=== PATIENT | male | born 1990 | race American Indian/Alaskan Native ===

== ENCOUNTER 2017-08-09 02:20 | Emergency (ER) | payer SELFPAY ==
[2017-08-09] MEDS ORDERED: TYLENOL PO ONE (04:43)
[2017-08-09] MEDS ORDERED: MOTRIN PO ONE (07:35)
[2017-08-09 07:49] LABS: Basophils % (Auto) 0.5 % (0.0-1.8); Eosinophils # (Auto) 0.3 K/mm3 (0.0-0.4); Eosinophils % (Auto) 4.2 % (0.0-4.3); Hematocrit 42.7 % (35.5-45.6); Hemoglobin 14.9 gm/dl (11.8-15.2); Lymphocytes # (Auto) 2.3 K/mm3 (1.2-5.4); Lymphocytes % (Auto) 31.9 % (13.4-35.0); Mean Corpuscular HGB Conc 35 % (32-34); Mean Corpuscular Hemoglobin 31 pg (28-32); Mean Corpuscular Volume 88 fl (84-94); Monocytes # (Auto) 0.7 K/mm3 (0.0-0.8); Monocytes % (Auto) 9.6 % (0.0-7.3); Platelet Count 188 K/mm3 (140-440); Red Blood Count 4.85 M/mm3 (3.65-5.03); Red Cell Distribution Width 13.5 % (13.2-15.2)
[2017-08-09 08:06] LABS: BUN/Creatinine Ratio 10; Blood Urea Nitrogen 5 mg/dL (9-20); Calcium 8.8 mg/dL (8.4-10.2); Hemolysis Index 18
--- NOTE | 2017-08-09 08:23 | XRay Report ---
Right hand 3 views: History: Finger/hand pain. Findings: No articular abnormality. No periosteal reaction or lytic lesion no soft tissue calcification. Impression: Essentially negative right hand.
[2017-08-09] MEDS ORDERED: K-DUR PO ONE (08:51)
--- NOTE | 2017-08-09 09:22 | Emergency Department Report ---
ED ENT HPI - General Chief complaint: Extremity Injury, Upper Stated complaint: RIGHT THUMB PAIN Time Seen by Provider: 08/09/17 07:34 Source: patient Mode of arrival: Ambulatory Limitations: No Limitations - History of Present Illness Initial comments: This is a 26-year-old male nontoxic, well nourished in appearance, no acute signs of distress presents to the ED with c/o of right thumb pain and right lower toothache 3 weeks. Patient denies following up with a dentist. 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 Patient denies any joint swelling or redness. Denies decreased ROM. Patient otherwise denies any head trauma. Patient describes toothache as aching level of 8 out of 10. Patient denies any facial swelling. Patient denies any numbness, tingling, fever, chills, headache, stiff neck, abdominal pain, chest pain, shortness of breath. Patient denies any drug allergies or significant past medical history. Patient states allergies to Bactrim and erythromycin base. Denies any skin past medical history. MD complaint: tooth pain, other (right thumb pain) Location: tooth # 1 - pain here Severity: mild Severity scale (0 -10): 8 Quality: aching Consistency: constant Improves with: none Worsens with: none Associated Symptoms: gum swelling, toothache. denies: fever, cough, pain with swallowing, sore throat, tinnitus, hearing loss, discharge from ear, rhinorrhea - Related Data Previous Rx's Medication Instructions Recorded Last Taken Type Acetaminophen/Codeine [Tylenol 1 tab PO Q6H PRN #12 tab 08/09/17 Unknown Rx /Codeine # 3 tab] Amoxicillin/K Clav Tab [Augmentin 1 tab PO Q12HR #20 tab 08/09/17 Unknown Rx 875 mg] Ibuprofen [Motrin] 600 mg PO Q8H PRN #30 tablet 08/09/17 Unknown Rx Allergies Allergy/AdvReac Type Severity Reaction Status Date / Time erythromycin base Allergy Hives Verified 08/09/17 04:43 sulfamethoxazole Allergy Hives Verified 08/09/17 04:43 [From Bactrim] trimethoprim [From Bactrim] Allergy Hives Verified 08/09/17 04:43 ED Dental HPI - General Chief complaint: Extremity Injury, Upper Stated complaint: RIGHT THUMB PAIN Time Seen by Provider: 08/09/17 07:34 Source: patient Mode of arrival: Ambulatory Limitations: No Limitations - Related Data Previous Rx's Medication Instructions Recorded Last Taken Type Acetaminophen/Codeine [Tylenol 1 tab PO Q6H PRN #12 tab 08/09/17 Unknown Rx /Codeine # 3 tab] Amoxicillin/K Clav Tab [Augmentin 1 tab PO Q12HR #20 tab 08/09/17 Unknown Rx 875 mg] Ibuprofen [Motrin] 600 mg PO Q8H PRN #30 tablet 08/09/17 Unknown Rx Allergies Allergy/AdvReac Type Severity Reaction Status Date / Time erythromycin base Allergy Hives Verified 08/09/17 04:43 sulfamethoxazole Allergy Hives Verified 08/09/17 04:43 [From Bactrim] trimethoprim [From Bactrim] Allergy Hives Verified 08/09/17 04:43 ED Review of Systems ROS: Stated complaint: RIGHT THUMB PAIN Other details as noted in HPI Constitutional: denies: chills, fever Eyes: denies: eye pain, eye discharge, vision change ENT: dental pain. denies: ear pain, throat pain Respiratory: denies: cough, shortness of breath, wheezing Cardiovascular: denies: chest pain, palpitations Endocrine: no symptoms reported Gastrointestinal: denies: abdominal pain, nausea, diarrhea Genitourinary: denies: urgency, dysuria Musculoskeletal: arthralgia. denies: back pain, joint swelling Skin: denies: rash, lesions Neurological: denies: headache, weakness, paresthesias Psychiatric: denies: anxiety, depression Hematological/Lymphatic: denies: easy bleeding, easy bruising ED Past Medical Hx - Past Medical History Previous Medical History?: No - Surgical History Past Surgical History?: Yes Additional Surgical History: R ankle sx ? - Social History Smoking Status: Current Every Day Smoker Substance Use Type: None, Alcohol, Heroin - Medications Home Medications: Home Medications Medication Instructions Recorded Confirmed Last Taken Type Acetaminophen/Codeine [Tylenol 1 tab PO Q6H PRN #12 tab 08/09/17 Unknown Rx /Codeine # 3 tab] Amoxicillin/K Clav Tab [Augmentin 1 tab PO Q12HR #20 tab 08/09/17 Unknown Rx 875 mg] Ibuprofen [Motrin] 600 mg PO Q8H PRN #30 tablet 08/09/17 Unknown Rx ED Physical Exam - General Limitations: No Limitations General appearance: alert, in no apparent distress - Head Head exam: Present: atraumatic, normocephalic - Eye Eye exam: Present: normal appearance Pupils: Present: normal accommodation - ENT ENT exam: Present: mucous membranes moist, TM's normal bilaterally, normal external ear exam - Expanded ENT Exam Expanded Ear exam: Present: normal external inspection Mouth exam: Present: normal external inspection, tongue normal. Absent: drooling, trismus, muffled voice, tongue elevation, laceration Teeth exam: Present: dental tenderness #, gingival enlargement, other (No facial swelling. ) 1 - Dental Tenderness Throat exam: Positive: normal inspection, other (Uvula midline. ). Negative: tonsillar erythema, tonsillomegaly, tonsillar exudate, R peritonsillar mass, L peritonsillar mass - Neck Neck exam: Present: normal inspection, full ROM. Absent: tenderness, meningismus, lymphadenopathy - Respiratory Respiratory exam: Present: normal lung sounds bilaterally. Absent: respiratory distress, wheezes, rales, rhonchi, stridor, chest wall tenderness, accessory muscle use, decreased breath sounds, prolonged expiratory - Cardiovascular Cardiovascular Exam: Present: regular rate, normal rhythm, normal heart sounds. Absent: bradycardia, tachycardia, irregular rhythm, systolic murmur, diastolic murmur, rubs, gallop - GI/Abdominal GI/Abdominal exam: Present: soft, normal bowel sounds - Rectal Rectal exam: Present: deferred - Extremities Exam Extremities exam: Present: normal inspection, full ROM, tenderness, normal capillary refill. Absent: joint swelling - Expanded Upper Extremity Exam Right General: Present: normal inspection Shoulder Exam: Present: normal inspection, full ROM Upper Arm exam: Present: normal inspection, full ROM Elbow exam: Present: normal inspection, full ROM Forearm Wrist exam: Present: normal inspection, full ROM. Absent: tenderness, swelling, abrasion, laceration, ecchymosis, deformity, crepidus, dislocation, erythema, tenderness over anatomical snuff box, pain with axial thumb loading Hand Wrist exam: Present: normal inspection, full ROM, tenderness. Absent: swelling, abrasion, laceration, ecchymosis, deformity, crepidus, dislocation, erythema, amputation, nail avulsion, subungual hematoma Hand L/R Back: 1 - pain Neuro motor exam: Present: wrist extension intact, thumb opposition intact, thumb IP flexion intact, thumb adduction intact, fingers 2-5 abduction intact Neurosensory exam: Present: 2-point discrimination, radial nerve intact, ulnar nerve intact, median nerve intact Vascular: Present: vascular compromise, normal capillary refill, radial pulse, brachial pulse, ulnar pulse - Back Exam Back exam: Present: normal inspection, full ROM - Neurological Exam Neurological exam: Present: alert, oriented X3, normal gait - Psychiatric Psychiatric exam: Present: normal affect, normal mood - Skin Skin exam: Present: warm, dry, intact, normal color. Absent: rash ED Course Vital Signs 08/09/17 08/09/17 08/09/17 04:37 04:55 05:55 Temperature 98.1 F Pulse Rate 64 Respiratory 18 18 16 Rate Blood Pressure 134/91 O2 Sat by Pulse 99 Oximetry 08/09/17 08/09/17 07:59 08:59 Temperature Pulse Rate Respiratory 16 16 Rate Blood Pressure O2 Sat by Pulse Oximetry - Reevaluation(s) Reevaluation #1: 08/09/17 09:22 Patient is speaking in full sentences with no signs of distress noted. ED Medical Decision Making - Lab Data Result diagrams: 08/09/17 07:41 08/09/17 07:38 - Medical Decision Making This is a 26-year-old female that presents with gingivitis, toothache and right finger strain. Patient is stable and was examined by me. X-ray has been obtained and dictated by the radiologist. Patient is notified of the x-ray report with noted by the patient. Patient does have normal gait with no tenderness and no joint swelling. No ecchymosis. no joint redness or swelling. Not warm to touch. No signs of cellulites present. Patient was instructed to RICE therapy. Patient received Motrin for pain. Patient is discharged with Augmentin and Tylenol 3. At time of discharge, the patient does not seem toxic or ill in appearance. No acute signs of distress noted. Patient agrees to discharge treatment plan of care. No further questions noted by the patient. Critical care attestation.: If time is entered above; I have spent that time in minutes in the direct care of this critically ill patient, excluding procedure time. ED Disposition Clinical Impression: Strain of right thumb, Toothache, Gingivitis Disposition: TO HOME OR SELFCARE Is pt being admited?: No Does the pt Need Aspirin: No Condition: Stable Instructions: Gingivitis (ED), Toothache (ED), Amoxicillin/Clavulanate Potassium (By mouth), RICE Therapy (ED), Acetaminophen/Codeine (By mouth), Ibuprofen (By mouth) Additional Instructions: Follow-up with a primary care doctor in 3-5 days or if symptoms worsen and continue return to emergency room as soon as possible. Prescriptions: Acetaminophen/Codeine [Tylenol /Codeine # 3 tab] 1 tab PO Q6H PRN #12 tab PRN Reason: Pain Amoxicillin/K Clav Tab [Augmentin 875 mg] 1 tab PO Q12HR #20 tab Ibuprofen [Motrin] 600 mg PO Q8H PRN #30 tablet PRN Reason: Pain Referrals: PRIMARY CARE, [Primary Care Provider] - 3-5 Days [facility] [Staff Physician] - 3-5 Days [facility] [Outside] - 3-5 Days [facility] [Outside] - 3-5 Days Forms: Work/School Release Form(ED)
[2017-08-09 09:43] VITALS: BP 128/76
== END 2017-08-09 09:43 | disposition home or self-care (01) ==
LOC: ED 02:20
DX: S56.311A Strain of extensor or abductor muscles, fascia and tendons of right thumb at forearm level, initial encounter (principal); K08.89 Other specified disorders of teeth and supporting structures; Z88.1 Allergy status to other antibiotic agents; Z88.2 Allergy status to sulfonamides; F17.200 Nicotine dependence, unspecified, uncomplicated; W22.09XA Striking against other stationary object, initial encounter; Y93.89 Activity, other specified; Y92.89 Other specified places as the place of occurrence of the external cause; Y99.8 Other external cause status
CPT/HCPCS: 36415; 80048; 85025

== ENCOUNTER 2017-08-22 20:39 | Emergency (ER) | payer SELFPAY ==
[2017-08-22 21:16] VITALS: BP 116/77
== END 2017-08-23 03:45 | disposition left against medical advice (07) ==
LOC: ED 20:39
DX: M79.644 Pain in right finger(s) (principal); Z53.21 Procedure and treatment not carried out due to patient leaving prior to being seen by health care provider

== ENCOUNTER 2017-08-23 22:36 | Emergency (ER) | payer SELFPAY ==
[2017-08-23 23:50] VITALS: BP 127/80
--- NOTE | 2017-08-24 01:42 | Emergency Department Report ---
ED ENT HPI - General Chief complaint: Dental/Oral Stated complaint: TOOTH ACHE Time Seen by Provider: 08/24/17 01:37 Source: patient Mode of arrival: Ambulatory Limitations: No Limitations - History of Present Illness Initial comments: 26-year-old male comes in for right toothache 2 days. Patient port the pain is 10 out of 10 and just took 800 mg of ibuprofen 30 minutes prior to arrival. Patient was recently seen here on 08/09/2017 and was prescribed Augmentin ibuprofen and Tylenol for thumb pain. Patient reports he does not have a dentist. MD complaint: tooth pain -: days(s) (2) Location: tooth # (29) Severity: severe Severity scale (0 -10): 10 Quality: stabbing, aching Consistency: constant Improves with: none Worsens with: none - Related Data Previous Rx's Medication Instructions Recorded Last Taken Type Acetaminophen/Codeine [Tylenol 1 tab PO Q6H PRN #12 tab 08/09/17 Unknown Rx /Codeine # 3 tab] Amoxicillin/K Clav Tab [Augmentin 1 tab PO Q12HR #20 tab 08/09/17 Unknown Rx 875 mg] Ibuprofen [Motrin 600 MG tab] 600 mg PO Q8H PRN #30 tablet 08/24/17 Unknown Rx Penicillin Vk [Veetids TAB] 250 mg PO QID #40 tablet 08/24/17 Unknown Rx traMADol [Ultram 50 MG tab] 50 mg PO Q6HR PRN #20 tablet 08/24/17 Unknown Rx Allergies Allergy/AdvReac Type Severity Reaction Status Date / Time erythromycin base Allergy Hives Verified 08/09/17 04:43 sulfamethoxazole Allergy Hives Verified 08/09/17 04:43 [From Bactrim] trimethoprim [From Bactrim] Allergy Hives Verified 08/09/17 04:43 ED Dental HPI - General Chief complaint: Dental/Oral Stated complaint: TOOTH ACHE Time Seen by Provider: 08/24/17 01:37 Source: patient Mode of arrival: Ambulatory Limitations: No Limitations - Related Data Previous Rx's Medication Instructions Recorded Last Taken Type Acetaminophen/Codeine [Tylenol 1 tab PO Q6H PRN #12 tab 08/09/17 Unknown Rx /Codeine # 3 tab] Amoxicillin/K Clav Tab [Augmentin 1 tab PO Q12HR #20 tab 08/09/17 Unknown Rx 875 mg] Ibuprofen [Motrin 600 MG tab] 600 mg PO Q8H PRN #30 tablet 08/24/17 Unknown Rx Penicillin Vk [Veetids TAB] 250 mg PO QID #40 tablet 08/24/17 Unknown Rx traMADol [Ultram 50 MG tab] 50 mg PO Q6HR PRN #20 tablet 08/24/17 Unknown Rx Allergies Allergy/AdvReac Type Severity Reaction Status Date / Time erythromycin base Allergy Hives Verified 08/09/17 04:43 sulfamethoxazole Allergy Hives Verified 08/09/17 04:43 [From Bactrim] trimethoprim [From Bactrim] Allergy Hives Verified 08/09/17 04:43 ED Review of Systems ROS: Stated complaint: TOOTH ACHE Other details as noted in HPI Constitutional: denies: chills, fever ENT: dental pain ED Past Medical Hx - Past Medical History Previous Medical History?: No - Surgical History Past Surgical History?: Yes Additional Surgical History: R ankle sx ? - Social History Smoking Status: Current Every Day Smoker Substance Use Type: Marijuana - Medications Home Medications: Home Medications Medication Instructions Recorded Confirmed Last Taken Type Acetaminophen/Codeine [Tylenol 1 tab PO Q6H PRN #12 tab 08/09/17 Unknown Rx /Codeine # 3 tab] Amoxicillin/K Clav Tab [Augmentin 1 tab PO Q12HR #20 tab 08/09/17 Unknown Rx 875 mg] Ibuprofen [Motrin 600 MG tab] 600 mg PO Q8H PRN #30 tablet 08/24/17 Unknown Rx Penicillin Vk [Veetids TAB] 250 mg PO QID #40 tablet 08/24/17 Unknown Rx traMADol [Ultram 50 MG tab] 50 mg PO Q6HR PRN #20 tablet 08/24/17 Unknown Rx ED Physical Exam - General Limitations: No Limitations General appearance: alert, in no apparent distress - Head Head exam: Present: atraumatic, normocephalic - Eye Eye exam: Present: normal appearance - Expanded ENT Exam Expanded Teeth exam: Present: dental caries, dental tenderness # (29), gingival enlargement, other (multiple caries and missing teeth ) Throat exam: Positive: normal inspection. Negative: tonsillomegaly - Neck Neck exam: Present: normal inspection - Respiratory Respiratory exam: Present: normal lung sounds bilaterally. Absent: respiratory distress - Cardiovascular Cardiovascular Exam: Present: regular rate, normal rhythm. Absent: systolic murmur, diastolic murmur, rubs, gallop ED Course Vital Signs 08/23/17 23:36 Temperature 98.4 F Pulse Rate 102 H Respiratory 12 Rate Blood Pressure 127/80 O2 Sat by Pulse 98 Oximetry ED Medical Decision Making - Medical Decision Making Patient has been evaluated by this provider fast track. I discussed the patient since he's been on Augmentin I will place him on clindamycin continue with ibuprofen and will give a prescription for tramadol and referral to dentist. Critical care attestation.: If time is entered above; I have spent that time in minutes in the direct care of this critically ill patient, excluding procedure time. ED Disposition Clinical Impression: Dental abscess Disposition: - TO HOME OR SELFCARE Is pt being admited?: No Does the pt Need Aspirin: No Condition: Stable Instructions: Dental Abscess (ED) Additional Instructions: Please complete antibiotics as prescribed. Pain medication as needed and follow -up with a dentist for treatment and management. Prescriptions: Ibuprofen [Motrin 600 MG tab] 600 mg PO Q8H PRN #30 tablet PRN Reason: Pain Penicillin Vk [Veetids TAB] 250 mg PO QID #40 tablet traMADol [Ultram 50 MG tab] 50 mg PO Q6HR PRN #20 tablet PRN Reason: Pain Referrals: PRIMARY CARE, [Primary Care Provider] - 3-5 Days [facility] [Outside] - 3-5 Days [facility] [Outside] - 3-5 Days [facility] [Provider Group] - 3-5 Days Forms: Work/School Release Form(ED)
[2017-08-24] MEDS ORDERED: NORCO 7.5/325 PO ONE (01:44)
== END 2017-08-24 02:00 | disposition home or self-care (01) ==
LOC: ED 22:36
DX: K04.7 Periapical abscess without sinus (principal); F17.200 Nicotine dependence, unspecified, uncomplicated; F12.90 Cannabis use, unspecified, uncomplicated; Z88.1 Allergy status to other antibiotic agents; Z88.2 Allergy status to sulfonamides
CPT/HCPCS: 99282

== ENCOUNTER 2017-09-02 01:49 | Emergency (ER) | payer SELFPAY ==
[2017-09-02 01:57] VITALS: BP 107/73
[2017-09-02] MEDS ORDERED: NORCO 5/325 ONE (01:59)
[2017-09-02] MEDS ORDERED: MOTRIN ONE (01:59)
[2017-09-02] MEDS ORDERED: MOTRIN PO ONE (02:10)
[2017-09-02] MEDS ORDERED: NORCO 5/325 PO ONE (02:10)
--- NOTE | 2017-09-02 03:14 | XRay Report ---
FINAL REPORT EXAM: XR ANKLE 2V LT HISTORY: swollen LLE TECHNIQUE: AP and lateral views of the left ankle were submitted. FINDINGS: There is diffuse soft tissue swelling overlying the anterolateral aspect of the ankle. The ankle mortise appears intact. There is no evidence of acute fracture. IMPRESSION: Prominent soft tissue swelling along the anterolateral aspect of the ankle. No fracture or dislocation identified.
--- NOTE | 2017-09-02 03:41 | Emergency Department Report ---
- General Chief complaint: Skin/Abscess/Foreign Body Stated complaint: KNOT ON LEG Time Seen by Provider: 09/02/17 02:39 Source: patient Mode of arrival: Ambulatory Limitations: No Limitations - History of Present Illness Initial comments: 26-year-old male past medical history former IV drug user presents with complaint of 2-3 days of abscess developing his left lower extremity. Visible walnut-sized abscess at distal anterior yip region. Patient states it is painful to palpation. Denies fevers chills nausea vomiting. Patient ambulatory without assistance. Denies any current IV drug use. States he is concerned he may have been bitten by an insect. 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 MD complaint: abscess/boil Onset/Timin -: days(s) Location: LLE Severity: moderate Severity scale (0 -10): 6 Quality: aching Consistency: constant Improves with: none Worsens with: palpation Context: none Associated symptoms: denies other symptoms Treatments Prior to Arrival: none - Related Data Previous Rx's Medication Instructions Recorded Last Taken Type Acetaminophen/Codeine [Tylenol 1 tab PO Q6H PRN #12 tab 08/09/17 Unknown Rx /Codeine # 3 tab] Amoxicillin/K Clav Tab [Augmentin 1 tab PO Q12HR #20 tab 08/09/17 Unknown Rx 875 mg] Ibuprofen [Motrin 600 MG tab] 600 mg PO Q8H PRN #30 tablet 08/24/17 Unknown Rx Penicillin Vk [Veetids TAB] 250 mg PO QID #40 tablet 08/24/17 Unknown Rx traMADol [Ultram 50 MG tab] 50 mg PO Q6HR PRN #20 tablet 08/24/17 Unknown Rx Clindamycin [Clindamycin CAP] 300 mg PO Q6H #28 capsule 09/02/17 Unknown Rx Ibuprofen [Motrin] 800 mg PO Q8HR PRN #20 tablet 09/02/17 Unknown Rx Allergies Allergy/AdvReac Type Severity Reaction Status Date / Time erythromycin base Allergy Hives Verified 08/09/17 04:43 sulfamethoxazole Allergy Hives Verified 08/09/17 04:43 [From Bactrim] trimethoprim [From Bactrim] Allergy Hives Verified 08/09/17 04:43 Abscess Boil HPI - HPI Chief Complaint: Skin/Abscess/Foreign Body Stated Complaint: KNOT ON LEG Time Seen by Provider: 09/02/17 02:39 Home Medications: Previous Rx's Medication Instructions Recorded Last Taken Type Acetaminophen/Codeine [Tylenol 1 tab PO Q6H PRN #12 tab 08/09/17 Unknown Rx /Codeine # 3 tab] Amoxicillin/K Clav Tab [Augmentin 1 tab PO Q12HR #20 tab 08/09/17 Unknown Rx 875 mg] Ibuprofen [Motrin 600 MG tab] 600 mg PO Q8H PRN #30 tablet 08/24/17 Unknown Rx Penicillin Vk [Veetids TAB] 250 mg PO QID #40 tablet 08/24/17 Unknown Rx traMADol [Ultram 50 MG tab] 50 mg PO Q6HR PRN #20 tablet 08/24/17 Unknown Rx Clindamycin [Clindamycin CAP] 300 mg PO Q6H #28 capsule 09/02/17 Unknown Rx Ibuprofen [Motrin] 800 mg PO Q8HR PRN #20 tablet 09/02/17 Unknown Rx Allergies/Adverse Reactions: Allergies Allergy/AdvReac Type Severity Reaction Status Date / Time erythromycin base Allergy Hives Verified 08/09/17 04:43 sulfamethoxazole Allergy Hives Verified 08/09/17 04:43 [From Bactrim] trimethoprim [From Bactrim] Allergy Hives Verified 08/09/17 04:43 ED Review of Systems ROS: Stated complaint: KNOT ON LEG Other details as noted in HPI Constitutional: denies: chills, fever Eyes: denies: eye pain, eye discharge, vision change ENT: denies: ear pain, throat pain Respiratory: denies: cough, shortness of breath, wheezing Cardiovascular: denies: chest pain, palpitations Endocrine: no symptoms reported Gastrointestinal: denies: abdominal pain, nausea, diarrhea Genitourinary: denies: urgency, dysuria Musculoskeletal: denies: back pain, joint swelling, arthralgia Skin: as per HPI. denies: rash, lesions Neurological: denies: headache, weakness, paresthesias Psychiatric: denies: anxiety, depression Hematological/Lymphatic: denies: easy bleeding, easy bruising ED Past Medical Hx - Past Medical History Previous Medical History?: Yes Additional medical history: gall bladder - Surgical History Past Surgical History?: Yes Additional Surgical History: R ankle sx ? - Social History Smoking Status: Current Every Day Smoker Substance Use Type: Marijuana, Methamphetamines - Medications Home Medications: Home Medications Medication Instructions Recorded Confirmed Last Taken Type Acetaminophen/Codeine [Tylenol 1 tab PO Q6H PRN #12 tab 08/09/17 Unknown Rx /Codeine # 3 tab] Amoxicillin/K Clav Tab [Augmentin 1 tab PO Q12HR #20 tab 08/09/17 Unknown Rx 875 mg] Ibuprofen [Motrin 600 MG tab] 600 mg PO Q8H PRN #30 tablet 08/24/17 Unknown Rx Penicillin Vk [Veetids TAB] 250 mg PO QID #40 tablet 08/24/17 Unknown Rx traMADol [Ultram 50 MG tab] 50 mg PO Q6HR PRN #20 tablet 08/24/17 Unknown Rx Clindamycin [Clindamycin CAP] 300 mg PO Q6H #28 capsule 09/02/17 Unknown Rx Ibuprofen [Motrin] 800 mg PO Q8HR PRN #20 tablet 09/02/17 Unknown Rx ED Physical Exam - General Limitations: No Limitations General appearance: alert, in no apparent distress - Head Head exam: Present: atraumatic, normocephalic - Eye Eye exam: Present: normal appearance - ENT ENT exam: Present: mucous membranes moist - Neck Neck exam: Present: normal inspection - Respiratory Respiratory exam: Present: normal lung sounds bilaterally. Absent: respiratory distress - Cardiovascular Cardiovascular Exam: Present: regular rate, normal rhythm. Absent: systolic murmur, diastolic murmur, rubs, gallop - GI/Abdominal GI/Abdominal exam: Present: soft, normal bowel sounds - Rectal Rectal exam: Present: deferred - Extremities Exam Extremities exam: Present: normal inspection - Expanded Lower Extremity Exam Left Lower Leg exam: Present: normal inspection, tenderness, swelling Ankle exam: Present: normal inspection, full ROM 1 - Abscess here - Back Exam Back exam: Present: normal inspection - Neurological Exam Neurological exam: Present: alert, oriented X3, CN II-XII intact, normal gait - Psychiatric Psychiatric exam: Present: normal affect, normal mood - Skin Skin exam: Present: warm, dry, intact, normal color. Absent: rash ED Course Vital Signs 09/02/17 09/02/17 01:51 02:11 Temperature 98.8 F Pulse Rate 94 H Respiratory 18 18 Rate Blood Pressure 107/73 O2 Sat by Pulse 100 Oximetry - I & D Left Distal Leg Type of Procedure: Simple Site: left distal anterior lower tibial region Blade Size: 11 I & D Procedure: betadine prep, gauze wick placed Progress: Area infiltrated with lidocaine. Good local anesthesia achieved. Approximately 4-5 mL of purulent material incised out of the wound after single stab incision. Covered with gauze afterward. ED Medical Decision Making - Medical Decision Making A/P: Abscess, abscess incision and drainage 1-clindamycin 4 times a day 7 days 2-Motrin 800 when necessary 3-follow-up with primary care 4- advised patient to return to the ED if he experiences any worsening of the erythema or expansion of abscess despite drainage. Patient stated he understood my instructions Critical care attestation.: If time is entered above; I have spent that time in minutes in the direct care of this critically ill patient, excluding procedure time. ED Disposition Clinical Impression: Abscess Disposition: DC-01 TO HOME OR SELFCARE Is pt being admited?: No Does the pt Need Aspirin: No Condition: Stable Instructions: Abscess (ED), Abscess Incision and Drainage (ED) Prescriptions: Clindamycin [Clindamycin CAP] 300 mg PO Q6H #28 capsule Ibuprofen [Motrin] 800 mg PO Q8HR PRN #20 tablet PRN Reason: Pain Referrals: [facility] [Provider Group] - 3-5 Days [facility] [Outside] - 3-5 Days Forms: Work/School Release Form(ED), Accompanied Note Time of Disposition: 04:19
[2017-09-02] MEDS ORDERED: CLEOCIN PO ONE (04:20)
== END 2017-09-02 04:31 | disposition home or self-care (01) ==
LOC: ED 01:49
DX: L02.416 Cutaneous abscess of left lower limb (principal); F17.200 Nicotine dependence, unspecified, uncomplicated; F12.10 Cannabis abuse, uncomplicated; F15.10 Other stimulant abuse, uncomplicated; Z88.1 Allergy status to other antibiotic agents; Z88.2 Allergy status to sulfonamides
CPT/HCPCS: 99283

== ENCOUNTER 2017-09-03 11:56 | Inpatient (IN) | payer SELFPAY ==
[2017-09-03] MEDS ORDERED: VANCOMYCIN IV ONE (12:07)
[2017-09-03] MEDS ORDERED: NACL 0.9% 1000 ML IV ONE (12:07)
[2017-09-03] MEDS ORDERED: NACL 0.9% IV ONE (12:07)
[2017-09-03] MEDS ORDERED: TYLENOL PO PRN ×2 (12:07→21:33)
[2017-09-03] MEDS ORDERED: XYLOCAINE CARDIAC IV ONE (12:23)
[2017-09-03] MEDS ORDERED: NACL 0.9% 100 ML ONE (12:41)
--- NOTE | 2017-09-03 12:47 | Emergency Department Report ---
ED Lower Extremity HPI - General Chief Complaint: Pain General Stated Complaint: SWELLING LEFT FOOT/INFECTION Time Seen by Provider: 09/03/17 11:57 Source: patient, EMS (verbal report received from EMS.ems notes not available at time of chart dictation), RN notes reviewed, old records reviewed Mode of arrival: Stretcher Limitations: Physical Limitation - History of Present Illness Initial Comments: This is a 26-year-old male who is previously unknown to this provider. He presents to the ER with a complaint of worsening left lower extremity redness, pain, swelling. Seen in this department a few days ago, had an incision and drainage performed, was prescribed clindamycin, reports not taking it. Denies headache, neck pain, chest pain, abdominal pain, shortness of breath. His pain is sharp, increases with palpation, decreases with rest, and is radiating up the distal left calf. EMS reports hypotension in the field. MD Complaint: leg injury, ankle injury, foot injury, other -: Gradual, days(s) Injury: Leg: Left, Ankle: Left, Foot: Left Type of Injury: unknown Severity: moderate Improves With: rest Worsens With: movement, palpation Associated Symptoms: swelling, unable to bear weight - Related Data Previous Rx's Medication Instructions Recorded Last Taken Type Acetaminophen/Codeine [Tylenol 1 tab PO Q6H PRN #12 tab 08/09/17 Unknown Rx /Codeine # 3 tab] Amoxicillin/K Clav Tab [Augmentin 1 tab PO Q12HR #20 tab 08/09/17 Unknown Rx 875 mg] Ibuprofen [Motrin 600 MG tab] 600 mg PO Q8H PRN #30 tablet 08/24/17 Unknown Rx Penicillin Vk [Veetids TAB] 250 mg PO QID #40 tablet 08/24/17 Unknown Rx traMADol [Ultram 50 MG tab] 50 mg PO Q6HR PRN #20 tablet 08/24/17 Unknown Rx Clindamycin [Clindamycin CAP] 300 mg PO Q6H #28 capsule 09/02/17 Unknown Rx Ibuprofen [Motrin] 800 mg PO Q8HR PRN #20 tablet 09/02/17 Unknown Rx Allergies Allergy/AdvReac Type Severity Reaction Status Date / Time erythromycin base Allergy Hives Verified 08/09/17 04:43 sulfamethoxazole Allergy Hives Verified 08/09/17 04:43 [From Bactrim] trimethoprim [From Bactrim] Allergy Hives Verified 08/09/17 04:43 ED Review of Systems ROS: Stated complaint: SWELLING LEFT FOOT/INFECTION Other details as noted in HPI Constitutional: weakness Eyes: denies: eye discharge ENT: denies: epistaxis Respiratory: denies: cough Cardiovascular: denies: chest pain Gastrointestinal: denies: abdominal pain Musculoskeletal: joint swelling, arthralgia, myalgia Skin: rash, lesions Neurological: weakness Psychiatric: anxiety ED Past Medical Hx - Past Medical History Previous Medical History?: Yes Additional medical history: gall bladder - Surgical History Past Surgical History?: Yes Additional Surgical History: R ankle sx ? - Social History Smoking Status: Current Every Day Smoker Substance Use Type: Alcohol, Marijuana - Medications Home Medications: Home Medications Medication Instructions Recorded Confirmed Last Taken Type Acetaminophen/Codeine [Tylenol 1 tab PO Q6H PRN #12 tab 08/09/17 Unknown Rx /Codeine # 3 tab] Amoxicillin/K Clav Tab [Augmentin 1 tab PO Q12HR #20 tab 08/09/17 Unknown Rx 875 mg] Ibuprofen [Motrin 600 MG tab] 600 mg PO Q8H PRN #30 tablet 08/24/17 Unknown Rx Penicillin Vk [Veetids TAB] 250 mg PO QID #40 tablet 08/24/17 Unknown Rx traMADol [Ultram 50 MG tab] 50 mg PO Q6HR PRN #20 tablet 08/24/17 Unknown Rx Clindamycin [Clindamycin CAP] 300 mg PO Q6H #28 capsule 09/02/17 Unknown Rx Ibuprofen [Motrin] 800 mg PO Q8HR PRN #20 tablet 09/02/17 Unknown Rx ED Physical Exam - General Limitations: Physical Limitation General appearance: alert, in distress - Head Head exam: Present: atraumatic, normocephalic - Eye Eye exam: Present: normal appearance, EOMI. Absent: nystagmus - ENT ENT exam: Present: normal exam, normal orophraynx, mucous membranes moist, normal external ear exam - Neck Neck exam: Present: normal inspection, full ROM - Respiratory Respiratory exam: Present: normal lung sounds bilaterally. Absent: respiratory distress - Cardiovascular Cardiovascular Exam: Present: regular rate, normal rhythm, normal heart sounds. Absent: systolic murmur, diastolic murmur, rubs, gallop - GI/Abdominal GI/Abdominal exam: Present: soft, normal bowel sounds. Absent: distended, tenderness, guarding, rebound, rigid, pulsatile mass - Rectal Rectal exam: Present: deferred - Extremities Exam Extremities exam: Present: tenderness, pedal edema, joint swelling, calf tenderness, other (2+ pulses noted in the bilateral upper extremities. 2+ pulses noted in the right lower extremity. Left lower extremity is erythematous from the dorsal/lateral aspect of the left foot, and there is also erythema extending to the proximal left calf. There is ulcerated lesion noted on the left lateral leg consistent with recent incision and drainage. There is no pain with passive range of motion of the toes. The compartments are tender. There is pain with passive range of motion of the ankle.) - Back Exam Back exam: Present: normal inspection, full ROM. Absent: paraspinal tenderness , vertebral tenderness - Neurological Exam Neurological exam: Present: alert, oriented X3, CN II-XII intact, other ( Extraocular movements intact. Tongue midline. No facial droop. Facial sensation intact to light touch in the V1, V2, V3 distribution bilaterally. 5 and 5 strength in 4 extremities.. Sensation is intact to light touch in 4 extremities.). Absent: motor sensory deficit - Psychiatric Psychiatric exam: Present: anxious - Skin Skin exam: Present: warm, rash, erythema ED Course Vital Signs 09/03/17 09/03/17 09/03/17 11:57 12:00 12:15 Temperature 97.9 F Pulse Rate 94 H Respiratory 16 Rate Blood Pressure 95/59 94/57 O2 Sat by Pulse 99 97 Oximetry 09/03/17 09/03/17 09/03/17 12:30 12:45 13:00 Temperature Pulse Rate 79 Respiratory 17 Rate Blood Pressure 77/43 81/48 83/47 O2 Sat by Pulse 98 97 98 Oximetry 09/03/17 09/03/17 09/03/17 13:15 13:30 13:54 Temperature Pulse Rate 77 62 78 Respiratory 13 14 Rate Blood Pressure 95/61 100/64 100/64 O2 Sat by Pulse 97 100 Oximetry 09/03/17 09/03/17 14:00 14:15 Temperature Pulse Rate 79 59 L Respiratory 17 15 Rate Blood Pressure 110/73 103/61 O2 Sat by Pulse 100 98 Oximetry - Reevaluation(s) Reevaluation #1: 09/03/17 12:48 Differential diagnosis, including but not limited to: Cellulitis, myositis, septic joint, necrotizing infection Assessment and plan: 26-year-old male with left lower extremity redness, swelling, tenderness, very concerning for worsening infection. He will be treated empirically according to the sepsis pathway. A CT scan of lower extremities pending. Orthopedic coverage resumes tomorrow at 7:00 in the morning. Reevaluation #2: 09/03/17 15:10 CT scan of the left lower extremity shows cellulitis without abscess. There is no radiographic evidence of osteomyelitis. The patient feels improved. The Hospital physician, Dr. Martinez accepted the patient to his service. Given that patient has a significant worsening of his condition after appropriate incision and drainage within the past 72 hours, and given that he cannot bear weight, and given that his physical exam shows significant redness, tenderness, it is my opinion the patient will benefit from hospitalization for IV antibiotics, early mobilization, and possible additional debridement, inpatient team will consult orthopedics or general surgery if they feel like it is necessary. ED Lower Extremity MDM - Lab Data Result diagrams: 09/03/17 12:13 09/03/17 12:13 Critical care attestation.: If time is entered above; I have spent that time in minutes in the direct care of this critically ill patient, excluding procedure time. ED Disposition Clinical Impression: Left leg cellulitis Disposition: OP ADMIT IP TO THIS HOSP Is pt being admited?: Yes Condition: Good
[2017-09-03 12:50] LABS: Basophils # (Auto) 0.1 K/mm3 (0.0-0.1); Basophils % (Auto) 0.8 % (0.0-1.8); Eosinophils # (Auto) 0.2 K/mm3 (0.0-0.4); Hematocrit 38.8 % (35.5-45.6); Hemoglobin 13.1 gm/dl (11.8-15.2); Lymphocytes # (Auto) 1.4 K/mm3 (1.2-5.4); Lymphocytes % (Auto) 12.5 % (13.4-35.0); Mean Corpuscular HGB Conc 34 % (32-34); Mean Corpuscular Hemoglobin 30 pg (28-32); Mean Corpuscular Volume 89 fl (84-94); Monocytes # (Auto) 0.5 K/mm3 (0.0-0.8); Monocytes % (Auto) 4.8 % (0.0-7.3); Platelet Count 184 K/mm3 (140-440); Red Blood Count 4.38 M/mm3 (3.65-5.03); Red Cell Distribution Width 13.2 % (13.2-15.2)
[2017-09-03] MEDS ORDERED: ZOSYN/NS 4.5GM/100ML 4.5 GM/100 ML VIAL IV SCH (13:00)
[2017-09-03 13:10] LABS: Erythrocyte Sedimentation Rate 35 mm/Hr (0-20)
[2017-09-03 13:24] LABS: Albumin 4.1 g/dL (3.9-5); BUN/Creatinine Ratio 15; Blood Urea Nitrogen 15 mg/dL (9-20); Calcium 8.9 mg/dL (8.4-10.2); Hemolysis Index 105
[2017-09-03 13:33] LABS: Alanine Aminotransferase 15 units/L (7-56)
--- NOTE | 2017-09-03 14:58 | Cat Scan Report ---
FINAL REPORT EXAM: CT LOWER EXTREMITY LT W CON HISTORY: septic leg TECHNIQUE: Spiral CT scanning of the left lower extremity from knee to forefoot after the uneventful administration of IV contrast. Multiplanar reformations. 100 mL Omnipaque IV. PRIORS: Left ankle radiographs, 01 September 2017. FINDINGS: Diffuse subcutaneous edema noted primarily along the anterolateral aspect of distal tibial diaphysis through forefoot without obvious perifascial or intramuscular extension. No discrete, ring-enhancing or loculated fluid collection. Trifurcation arteries patent and normally enhancing with 3-vessel runoff to the ankle. No acute fracture, dislocation or obvious osseous destruction. IMPRESSION: 1. Findings which may represent nonspecific postinflammatory change or cellulitis in the anterolateral aspect of left ankle and foot. No discrete abscess. Clinical correlation and followup to resolution advised. 2. No acute osseous abnormality.
[2017-09-03] MEDS ORDERED: NACL 0.9% 1000 ML 2,000 ML ONE (15:16)
[2017-09-03] MEDS ORDERED: ZOFRAN IV PRN (21:33)
[2017-09-03] MEDS ORDERED: SODIUM CHLORIDE FLUSH SYRINGE 10 ML IV PRN (21:33)
--- NOTE | 2017-09-03 21:33 | History and Physical Report ---
History of Present Illness Date of examination: 09/03/17 Date of admission: 09/03/17 15:12 Chief complaint: Chief complaint: Left foot ulcer and swelling and redness one week History of present illness: History of Present Illness 26-year-old male with no significant past medical history comes in for left lower extremity redness and swelling around the ankle. We'll going on for 1 week. Patient had an incision and drainage performed and was prescribed clindamycin in this emergency room. Patient did not take the clindamycin. Now the symptoms are worsening at the increase in redness of the left ankle extending up to the midcalf and also swelling. No fever no chills. Pain is about 6 on a scale of 1-10. Walking is an exacerbating factor. The liver bed rest Past Medical History Previous Medical History?: Yes Additional medical history: gall bladder Surgical History Past Surgical History?: Yes Additional Surgical History: R ankle sx ? Social History Smoking Status: Current Every Day Smoker Substance Use Type: Alcohol, Marijuana Family history unknown Medications Home Medications: Home Medications Medication Instructions Recorded Confirmed Last Taken Type Acetaminophen/Codeine [Tylenol 1 tab PO Q6H PRN #12 tab 08/09/17 Unknown Rx /Codeine # 3 tab] Amoxicillin/K Clav Tab [Augmentin 1 tab PO Q12HR #20 tab 08/09/17 Unknown Rx 875 mg] Ibuprofen [Motrin 600 MG tab] 600 mg PO Q8H PRN #30 tablet 08/24/17 Unknown Rx Penicillin Vk [Veetids TAB] 250 mg PO QID #40 tablet 08/24/17 Unknown Rx traMADol [Ultram 50 MG tab] 50 mg PO Q6HR PRN #20 tablet 08/24/17 Unknown Rx Clindamycin [Clindamycin CAP] 300 mg PO Q6H #28 capsule 09/02/17 Unknown Rx Ibuprofen [Motrin] 800 mg PO Q8HR PRN #20 tablet 09/02/17 Unknown Rx Review of Systems ROS: Stated complaint: SWELLING LEFT FOOT/INFECTION Other details as noted in HPI Constitutional: weakness Eyes: denies: eye discharge ENT: denies: epistaxis Respiratory: denies: cough Cardiovascular: denies: chest pain Gastrointestinal: denies: abdominal pain Musculoskeletal: joint swelling, arthralgia, myalgia Skin: rash, lesions Neurological: weakness Psychiatric: anxiety Medications and Allergies Allergies Allergy/AdvReac Type Severity Reaction Status Date / Time erythromycin base Allergy Hives Verified 08/09/17 04:43 sulfamethoxazole Allergy Hives Verified 08/09/17 04:43 [From Bactrim] trimethoprim [From Bactrim] Allergy Hives Verified 08/09/17 04:43 Home Medications Medication Instructions Recorded Confirmed Last Taken Type Acetaminophen/Codeine [Tylenol 1 tab PO Q6H PRN #12 tab 08/09/17 Unknown Rx /Codeine # 3 tab] Amoxicillin/K Clav Tab [Augmentin 1 tab PO Q12HR #20 tab 08/09/17 Unknown Rx 875 mg] Ibuprofen [Motrin 600 MG tab] 600 mg PO Q8H PRN #30 tablet 08/24/17 Unknown Rx Penicillin Vk [Veetids TAB] 250 mg PO QID #40 tablet 08/24/17 Unknown Rx traMADol [Ultram 50 MG tab] 50 mg PO Q6HR PRN #20 tablet 08/24/17 Unknown Rx Clindamycin [Clindamycin CAP] 300 mg PO Q6H #28 capsule 09/02/17 Unknown Rx Ibuprofen [Motrin] 800 mg PO Q8HR PRN #20 tablet 09/02/17 Unknown Rx Active Meds: Active Medications Acetaminophen (Tylenol) 650 mg PO Q6H PRN PRN Reason: Pain, Mild (1-3) Last Admin: 09/03/17 12:30 Dose: 650 mg Piperacillin Sod/Tazobactam Sod (Zosyn/Ns 4.5gm/100ml) 4.5 gm in 100 mls @ 200 mls/hr IV Q8H ARMAND; Protocol Last Admin: 09/03/17 12:50 Dose: 200 mls/hr Influenza Virus Vaccine Quadrival (Fluarix Quad [id number](36 Mos+) 0.5 ml IM .ONCE ONE Stop: 09/04/17 12:01 Nicotine (Habitrol) 21 mg TD QDAY ARMAND Exam - Physical Exam Narrative exam: Lying in bed comfortably - Constitutional Vitals: Temp Pulse Resp BP Pulse Ox 97.9 F 73 20 93/53 94 09/03/17 16:46 09/03/17 16:46 09/03/17 16:46 09/03/17 16:46 09/03/17 16:46 General appearance: Present: no acute distress, well-nourished - EENT Eyes: Present: PERRL ENT: hearing intact, clear oral mucosa - Neck Neck: Present: supple, normal ROM - Respiratory Respiratory effort: normal Respiratory: bilateral: CTA - Cardiovascular Heart rate: 76 Rhythm: regular Heart Sounds: Present: S1 & S2. Absent: rub, click - Extremities Extremities: no ischemia, pulses symmetrical, No edema, abnormal (left ankle ulcer with redness surrounding the ankle up to the midcalf associated swelling) Peripheral Pulses: within normal limits - Abdominal General gastrointestinal: Present: soft, non-tender, non-distended, normal bowel sounds Male genitourinary: Present: normal - Integumentary Integumentary: Present: clear, warm, dry - Musculoskeletal Musculoskeletal: gait normal, strength equal bilaterally - Psychiatric Psychiatric: appropriate mood/affect, intact judgment & insight - Neurologic Neurologic: CNII-XII intact, moves all extremities Results - Labs CBC & Chem 7: 09/03/17 12:13 09/03/17 12:13 Labs: Laboratory Last Values WBC 11.4 K/mm3 (4.5-11.0) H 09/03/17 12:13 RBC 4.38 M/mm3 (3.65-5.03) 09/03/17 12:13 Hgb 13.1 gm/dl (11.8-15.2) 09/03/17 12:13 Hct 38.8 % (35.5-45.6) 09/03/17 12:13 MCV 89 fl (84-94) 09/03/17 12:13 MCH 30 pg (28-32) 09/03/17 12:13 MCHC 34 % (32-34) 09/03/17 12:13 RDW 13.2 % (13.2-15.2) 09/03/17 12:13 Plt Count 184 K/mm3 (140-440) 09/03/17 12:13 Lymph % (Auto) 12.5 % (13.4-35.0) L 09/03/17 12:13 [place] % (Auto) 4.8 % (0.0-7.3) 09/03/17 12:13 Eos % (Auto) 2.0 % (0.0-4.3) 09/03/17 12:13 Baso % (Auto) 0.8 % (0.0-1.8) 09/03/17 12:13 Lymph # 1.4 K/mm3 (1.2-5.4) 09/03/17 12:13 [place] # 0.5 K/mm3 (0.0-0.8) 09/03/17 12:13 Eos # 0.2 K/mm3 (0.0-0.4) 09/03/17 12:13 Baso # 0.1 K/mm3 (0.0-0.1) 09/03/17 12:13 Seg Neutrophils % 79.9 % (40.0-70.0) H 09/03/17 12:13 Seg Neutrophils # 9.1 K/mm3 (1.8-7.7) H 09/03/17 12:13 ESR 35 mm/Hr (0-20) 09/03/17 12:13 APTT 30.7 Sec. (24.2-36.6) 09/03/17 12:13 Sodium 134 mmol/L (137-145) L 09/03/17 12:13 Potassium 3.8 mmol/L (3.6-5.0) 09/03/17 12:13 Chloride 94.5 mmol/L (98-107) L 09/03/17 12:13 Carbon Dioxide 22 mmol/L (22-30) 09/03/17 12:13 Anion Gap 21 mmol/L 09/03/17 12:13 BUN 15 mg/dL (9-20) 09/03/17 12:13 Creatinine 1.0 mg/dL (0.8-1.5) 09/03/17 12:13 Estimated GFR > 60 ml/min 09/03/17 12:13 BUN/Creatinine Ratio 15 % 09/03/17 12:13 Glucose 86 mg/dL (75-100) 09/03/17 12:13 Lactic Acid 1.30 mmol/L (0.7-2.0) 09/03/17 12:13 Calcium 8.9 mg/dL (8.4-10.2) 09/03/17 12:13 Total Bilirubin 0.60 mg/dL (0.1-1.2) 09/03/17 12:13 AST 21 units/L (5-40) 09/03/17 12:13 ALT 15 units/L (7-56) 09/03/17 12:13 Alkaline Phosphatase 71 units/L (35-129) 09/03/17 12:13 Total Creatine Kinase 90 units/L (55-170) 09/03/17 12:13 C-Reactive Protein 14.30 mg/dL (0.00-1.30) H 09/03/17 12:13 Total Protein 7.1 g/dL (6.3-8.2) 09/03/17 12:13 Albumin 4.1 g/dL (3.9-5) 09/03/17 12:13 Albumin/Globulin Ratio 1.4 % 09/03/17 12:13 - Imaging and Cardiology Imaging and Cardiology: Left ankle CT FINDINGS: Diffuse subcutaneous edema noted primarily along the anterolateral aspect of distal tibial diaphysis through forefoot without obvious perifascial or intramuscular extension. No discrete, ring-enhancing or loculated fluid collection. Trifurcation arteries patent and normally enhancing with 3-vessel runoff to the ankle. No acute fracture, dislocation or obvious osseous destruction. IMPRESSION: 1. Findings which may represent nonspecific postinflammatory change or cellulitis in the anterolateral aspect of left ankle and foot. No discrete abscess. Clinical correlation and followup to resolution advised. 2. No acute osseous abnormality. Assessment and Plan Advance Directives: Yes (full code) VTE prophylaxis?: Chemical Plan of care discussed with patient/family: Yes - Patient Problems (1) Left leg cellulitis Current Visit: Yes Status: Acute Plan to address problem: Patient started on Unasyn and vancomycin. Wound care consult requested (2) Hyponatremia Current Visit: Yes Status: Acute Plan to address problem: mild Should correct with IV fluids (3) DVT prophylaxis Current Visit: Yes Status: Acute Plan to address problem: Heparin subcutaneously
[2017-09-03] MEDS ORDERED: VANCOMYCIN PHARMACY TO DOSE IV SCH (22:00)
[2017-09-03] MEDS: MORPHINE IV PRN (22:47)
[2017-09-03] MEDS: PEPCID PO SCH (22:48)
[2017-09-03] MEDS: NACL 0.9% 1000 ML 1,000 ML IV SCH (23:09)
[2017-09-04] MEDS: UNASYN/NS 3 GM/100 ML 3 GM/100 ML BAG IV SCH ×6 (00:23→23:49)
[2017-09-04] MEDS ORDERED: VANCOMYCIN/NS 1 GM/250 ML 1 GM/250 ML BAG IV SCH (02:00)
--- NOTE | 2017-09-04 10:06 | Progress Note ---
<VALERIY OH - Last Filed: 09/04/17 14:23> Assessment and Plan Assessment and plan: 26-year-old male with no significant past medical history comes in for left lower extremity redness and swelling around the ankle. Left leg cellulitis Patient started on Unasyn and vancomycin. Wound care following Hyponatremia mild, resolved with IV fluids Hypokalemia Supplemented Nicotine dependence Patient counseled on cessation, nicotine patch Anemia We'll continue to monitor H&H DVT prophylaxis Heparin subcutaneously History Interval history: Patient seen and examined. Continues to complain of left leg pain and tenderness. No other new complaints at this time. Labs, chart notes and nursing notes reviewed. Hospitalist Physical - Physical exam Narrative exam: General appearance: Present: no acute distress, well-nourished - EENT Eyes: Present: PERRL, EOM intact ENT: hearing intact, clear oral mucosa - Neck Present: supple, normal ROM - Respiratory Respiratory effort: normal Respiratory: bilateral: CTA - Cardiovascular Rhythm: regular Heart Sounds: Present: S1 & S2. Absent: Rub, click - Extremities Extremities: no ischemia, No edema, left lower extremity bandaged - Abdominal General gastrointestinal: soft, non-tender, non-distended, normal bowel sounds - Integumentary Integumentary: Present: clear, warm, dry - Psychiatric Psychiatric: appropriate mood/affect, intact judgment & insight, cooperative - Neurologic Neurologic: CNII-XII intact, moves all extremities - Constitutional Vitals: Temp Pulse Resp BP Pulse Ox 100.0 F H 78 18 123/76 98 09/04/17 07:29 09/04/17 07:29 09/04/17 07:29 09/04/17 07:29 09/04/17 07:29 Results - Labs CBC & Chem 7: 09/04/17 10:53 09/04/17 10:53 Labs: Laboratory Last Values WBC 11.4 K/mm3 (4.5-11.0) H 09/03/17 12:13 RBC 4.38 M/mm3 (3.65-5.03) 09/03/17 12:13 Hgb 13.1 gm/dl (11.8-15.2) 09/03/17 12:13 Hct 38.8 % (35.5-45.6) 09/03/17 12:13 MCV 89 fl (84-94) 09/03/17 12:13 MCH 30 pg (28-32) 09/03/17 12:13 MCHC 34 % (32-34) 09/03/17 12:13 RDW 13.2 % (13.2-15.2) 09/03/17 12:13 Plt Count 184 K/mm3 (140-440) 09/03/17 12:13 Lymph % (Auto) 12.5 % (13.4-35.0) L 09/03/17 12:13 [place] % (Auto) 4.8 % (0.0-7.3) 09/03/17 12:13 Eos % (Auto) 2.0 % (0.0-4.3) 09/03/17 12:13 Baso % (Auto) 0.8 % (0.0-1.8) 09/03/17 12:13 Lymph # 1.4 K/mm3 (1.2-5.4) 09/03/17 12:13 [place] # 0.5 K/mm3 (0.0-0.8) 09/03/17 12:13 Eos # 0.2 K/mm3 (0.0-0.4) 09/03/17 12:13 Baso # 0.1 K/mm3 (0.0-0.1) 09/03/17 12:13 Seg Neutrophils % 79.9 % (40.0-70.0) H 09/03/17 12:13 Seg Neutrophils # 9.1 K/mm3 (1.8-7.7) H 09/03/17 12:13 ESR 35 mm/Hr (0-20) 09/03/17 12:13 APTT 30.7 Sec. (24.2-36.6) 09/03/17 12:13 Sodium 134 mmol/L (137-145) L 09/03/17 12:13 Potassium 3.8 mmol/L (3.6-5.0) 09/03/17 12:13 Chloride 94.5 mmol/L (98-107) L 09/03/17 12:13 Carbon Dioxide 22 mmol/L (22-30) 09/03/17 12:13 Anion Gap 21 mmol/L 09/03/17 12:13 BUN 15 mg/dL (9-20) 09/03/17 12:13 Creatinine 1.0 mg/dL (0.8-1.5) 09/03/17 12:13 Estimated GFR > 60 ml/min 09/03/17 12:13 BUN/Creatinine Ratio 15 % 09/03/17 12:13 Glucose 86 mg/dL (75-100) 09/03/17 12:13 Hemoglobin A1c 5.3 % (4-6) 09/03/17 22:45 Lactic Acid 1.30 mmol/L (0.7-2.0) 09/03/17 12:13 Calcium 8.9 mg/dL (8.4-10.2) 09/03/17 12:13 Total Bilirubin 0.60 mg/dL (0.1-1.2) 09/03/17 12:13 AST 21 units/L (5-40) 09/03/17 12:13 ALT 15 units/L (7-56) 09/03/17 12:13 Alkaline Phosphatase 71 units/L (35-129) 09/03/17 12:13 Total Creatine Kinase 90 units/L (55-170) 09/03/17 12:13 C-Reactive Protein 14.30 mg/dL (0.00-1.30) H 09/03/17 12:13 Total Protein 7.1 g/dL (6.3-8.2) 09/03/17 12:13 Albumin 4.1 g/dL (3.9-5) 09/03/17 12:13 Albumin/Globulin Ratio 1.4 % 09/03/17 12:13 <RAKESH TATUM - Last Filed: 09/05/17 00:21> Assessment and Plan Assessment and plan: I saw and evaluated the patient. I agree with the findings and the plan of care as documented in the Nurse Practitioner's~note, with the following corrections and additions. Patient has cellulitis left leg. Continue Unasyn and vancomycin. Hospitalist Physical - Constitutional Vitals: Temp Pulse Resp BP Pulse Ox 99.1 F 78 18 108/63 89 09/04/17 15:32 09/04/17 15:32 09/04/17 15:32 09/04/17 15:32 09/04/17 15:32 Results - Labs CBC & Chem 7: 09/04/17 10:53 09/04/17 16:29 Labs: Laboratory Last Values WBC 7.4 K/mm3 (4.5-11.0) 09/04/17 10:53 RBC 3.84 M/mm3 (3.65-5.03) 09/04/17 10:53 Hgb 11.4 gm/dl (11.8-15.2) L 09/04/17 10:53 Hct 34.6 % (35.5-45.6) L 09/04/17 10:53 MCV 90 fl (84-94) 09/04/17 10:53 MCH 30 pg (28-32) 09/04/17 10:53 MCHC 33 % (32-34) 09/04/17 10:53 RDW 13.5 % (13.2-15.2) 09/04/17 10:53 Plt Count 175 K/mm3 (140-440) 09/04/17 10:53 Lymph % (Auto) 20.9 % (13.4-35.0) 09/04/17 10:53 [place] % (Auto) 8.2 % (0.0-7.3) H 09/04/17 10:53 Eos % (Auto) 3.6 % (0.0-4.3) 09/04/17 10:53 Baso % (Auto) 0.3 % (0.0-1.8) 09/04/17 10:53 Lymph # 1.5 K/mm3 (1.2-5.4) 09/04/17 10:53 [place] # 0.6 K/mm3 (0.0-0.8) 09/04/17 10:53 Eos # 0.3 K/mm3 (0.0-0.4) 09/04/17 10:53 Baso # 0.0 K/mm3 (0.0-0.1) 09/04/17 10:53 Seg Neutrophils % 67.0 % (40.0-70.0) 09/04/17 10:53 Seg Neutrophils # 4.9 K/mm3 (1.8-7.7) 09/04/17 10:53 ESR 35 mm/Hr (0-20) 09/03/17 12:13 APTT 30.7 Sec. (24.2-36.6) 09/03/17 12:13 Sodium 138 mmol/L (137-145) 09/04/17 16:29 Potassium 3.8 mmol/L (3.6-5.0) 09/04/17 16:29 Chloride 101.4 mmol/L (98-107) 09/04/17 16:29 Carbon Dioxide 26 mmol/L (22-30) 09/04/17 16:29 Anion Gap 14 mmol/L 09/04/17 16:29 BUN 7 mg/dL (9-20) L 09/04/17 16:29 Creatinine 0.3 mg/dL (0.8-1.5) L D 09/04/17 16:29 Estimated GFR > 60 ml/min 09/04/17 16:29 BUN/Creatinine Ratio 23 % 09/04/17 16:29 Glucose 106 mg/dL (75-100) H 09/04/17 16:29 Hemoglobin A1c 5.3 % (4-6) 09/03/17 22:45 Lactic Acid 1.30 mmol/L (0.7-2.0) 09/03/17 12:13 Calcium 8.2 mg/dL (8.4-10.2) L 09/04/17 16:29 Total Bilirubin 0.40 mg/dL (0.1-1.2) 09/04/17 10:53 AST 13 units/L (5-40) 09/04/17 10:53 ALT 13 units/L (7-56) 09/04/17 10:53 Alkaline Phosphatase 68 units/L (35-129) 09/04/17 10:53 Total Creatine Kinase 90 units/L (55-170) 09/03/17 12:13 C-Reactive Protein 14.30 mg/dL (0.00-1.30) H 09/03/17 12:13 Total Protein 5.9 g/dL (6.3-8.2) L 09/04/17 10:53 Albumin 3.1 g/dL (3.9-5) L 09/04/17 10:53 Albumin/Globulin Ratio 1.1 % 09/04/17 10:53
[2017-09-04] MEDS: HABITROL TD SCH ×2 (11:24→23:12)
[2017-09-04] MEDS: SODIUM CHLORIDE FLUSH SYRINGE 10 ML IV SCH ×3 (11:35→23:13)
[2017-09-04] MEDS: PEPCID PO SCH ×2 (11:35→21:20)
[2017-09-04 11:41] LABS: Basophils % (Auto) 0.3 % (0.0-1.8); Eosinophils # (Auto) 0.3 K/mm3 (0.0-0.4); Eosinophils % (Auto) 3.6 % (0.0-4.3); Hematocrit 34.6 % (35.5-45.6); Hemoglobin 11.4 gm/dl (11.8-15.2); Lymphocytes # (Auto) 1.5 K/mm3 (1.2-5.4); Lymphocytes % (Auto) 20.9 % (13.4-35.0); Mean Corpuscular HGB Conc 33 % (32-34); Mean Corpuscular Hemoglobin 30 pg (28-32); Mean Corpuscular Volume 90 fl (84-94); Monocytes # (Auto) 0.6 K/mm3 (0.0-0.8); Monocytes % (Auto) 8.2 % (0.0-7.3); Platelet Count 175 K/mm3 (140-440); Red Blood Count 3.84 M/mm3 (3.65-5.03); Red Cell Distribution Width 13.5 % (13.2-15.2)
[2017-09-04 11:52] LABS: Alanine Aminotransferase 13 units/L (7-56); Albumin 3.1 g/dL (3.9-5); BUN/Creatinine Ratio 9; Blood Urea Nitrogen 6 mg/dL (9-20); Calcium 8.1 mg/dL (8.4-10.2); Hemolysis Index 13
[2017-09-04] MEDS ORDERED: Fluarix Quad 2017-2018(36 MOS+ IM ONE (12:00)
[2017-09-04] MEDS: PERCOCET 5/325 PO PRN (16:00)
[2017-09-04 17:11] LABS: BUN/Creatinine Ratio 23; Blood Urea Nitrogen 7 mg/dL (9-20); Calcium 8.2 mg/dL (8.4-10.2); Hemolysis Index 77
[2017-09-04] MEDS: VANCOMYCIN 1,250 MG in NACL 0.9% 250ML 250 ML IV SCH (19:00)
[2017-09-04] MEDS: MORPHINE IV PRN (21:18)
[2017-09-05] MEDS: MORPHINE IV PRN ×3 (03:16→18:27)
[2017-09-05] MEDS: UNASYN/NS 3 GM/100 ML 3 GM/100 ML BAG IV SCH ×2 (06:04→15:06)
[2017-09-05] MEDS: PERCOCET 5/325 PO PRN ×2 (06:08→15:07)
[2017-09-05] MEDS: HEPARIN SUB-Q SCH ×2 (06:10→15:06)
[2017-09-05] MEDS: VANCOMYCIN 1,250 MG in NACL 0.9% 250ML 250 ML IV SCH ×2 (06:34→18:26)
[2017-09-05 07:56] LABS: Basophils % (Auto) 0.3 % (0.0-1.8); Eosinophils # (Auto) 0.2 K/mm3 (0.0-0.4); Eosinophils % (Auto) 3.7 % (0.0-4.3); Hematocrit 33.6 % (35.5-45.6); Hemoglobin 11.5 gm/dl (11.8-15.2); Lymphocytes % (Auto) 23.5 % (13.4-35.0); Mean Corpuscular HGB Conc 34 % (32-34); Mean Corpuscular Hemoglobin 31 pg (28-32); Mean Corpuscular Volume 89 fl (84-94); Monocytes # (Auto) 0.3 K/mm3 (0.0-0.8); Monocytes % (Auto) 7.9 % (0.0-7.3); Platelet Count 161 K/mm3 (140-440); Red Blood Count 3.76 M/mm3 (3.65-5.03); Red Cell Distribution Width 13.2 % (13.2-15.2)
[2017-09-05 08:05] LABS: BUN/Creatinine Ratio 8; Blood Urea Nitrogen 5 mg/dL (9-20); Calcium 8.2 mg/dL (8.4-10.2); Hemolysis Index 2
[2017-09-05] MEDS: HABITROL TD SCH (10:59)
[2017-09-05] MEDS: PEPCID PO SCH (11:00)
[2017-09-05] MEDS: SODIUM CHLORIDE FLUSH SYRINGE 10 ML IV SCH (11:00)
[2017-09-05] MEDS ORDERED: Fluarix Quad 2017-2018(36 MOS+ IM ONE (12:00)
[2017-09-05] MEDS ORDERED: K-DUR PO ONE ×2 (12:00→15:00)
--- NOTE | 2017-09-05 15:08 | Progress Note ---
Assessment and Plan 26-year-old male with no significant past medical history comes in for left lower extremity redness and swelling around the ankle. /Left leg cellulitis Patient started on Unasyn and vancomycin. Wound care following negative blood cx /Hyponatremia mild, resolved with IV fluids /Hypokalemia Supplemented /Nicotine dependence Patient counseled on cessation, nicotine patch /Anemia We'll continue to monitor H&H /DVT prophylaxis Heparin subcutaneously Hospitalist Physical - Physical exam Narrative exam: General appearance: mild distress, lying on bed - EENT Eyes: Present: PERRL, EOM intact ENT: hearing intact, clear oral mucosa - Neck Present: supple, normal ROM - Respiratory Respiratory effort: normal Respiratory: bilateral: CTA - Cardiovascular Rhythm: regular Heart Sounds: Present: S1 & S2. Absent: Rub, click - Extremities Extremities: no ischemia, No edema, left lower extremity bandaged, very tender on minimal palpation - Abdominal General gastrointestinal: soft, non-tender, non-distended, normal bowel sounds - Integumentary Integumentary: Present: clear, warm, dry - Psychiatric Psychiatric: appropriate mood/affect, intact judgment & insight, cooperative - Neurologic Neurologic: CNII-XII intact, moves all extremities Subjective Date of service: 09/05/17 Interval history: Pt seen and examined very uncomfortable with minimal manipulation of his LE for clinical exam states his leg still very painful Objective - Constitutional Vitals: Vital Signs - 12hr 09/05/17 08:03 Temperature 98.3 F Pulse Rate 51 L Respiratory 20 Rate Blood Pressure 109/68 O2 Sat by Pulse 92 Oximetry - Labs CBC & Chem 7: 09/05/17 07:11 09/05/17 07:11 Labs: Abnormal lab results 09/04/17 09/05/17 09/05/17 Range/Units 16:29 07:11 07:11 WBC 4.1 L (4.5-11.0) K/mm3 Hgb 11.5 L (11.8-15.2) gm/dl Hct 33.6 L (35.5-45.6) % [place] % (Auto) 7.9 H (0.0-7.3) % Lymph # 1.0 L (1.2-5.4) K/mm3 Potassium 3.1 L (3.6-5.0) mmol/L BUN 7 L 5 L (9-20) mg/dL Creatinine 0.3 L D 0.6 L D (0.8-1.5) mg/dL Glucose 106 H (75-100) mg/dL Calcium 8.2 L 8.2 L (8.4-10.2) mg/dL
[2017-09-05] MEDS: NACL 0.9% 1000 ML 1,000 ML IV SCH (15:13)
[2017-09-05 18:10] VITALS: BP 104/66
--- NOTE | 2017-09-06 10:59 | Discharge Summary ---
Providers - Providers Date of Admission: 09/03/17 15:12 Date of discharge: 09/05/17 Attending physician: ZACK MACKAY 09/03/17 18:37 Consult to Wound/ET Nurse [CONS] Routine Reason For Exam: wound eval Primary care physician: RODRI SOLIS MD Hospitalization Condition: Good Pertinent studies: Left lower extremity CT quadrant: No sign of bony erosion or osteomyelitis Hospital course: 26-year-old male with no significant past medical history came in for left lower extremity redness and swelling around the ankle. He was started on broad-spectrum antibiotics, blood culture obtained, wound care consulted. His blood culture was negative, noted a small shallow ulcer on the lateral aspect of his left ankle. The patient was still getting IV antibiotics and was complaining of tremendous pain to his left lower foot. But he decided to leave AMA and did not wait to get prescription for antibiotics. Discharge diagnosis: -Left leg cellulitis Patient started on Unasyn and vancomycin. Wound care was following -Hyponatremia mild, resolved with IV fluids -Hypokalemia Supplemented -Nicotine dependence Patient counseled on cessation, provided nicotine patch -Anemia, monitored H&H -DVT prophylaxis Heparin subcutaneously Disposition: [id number] LEFT AGAINST MED ADVICE Core Measure Documentation - Palliative Care Palliative Care/ Comfort Measures: Not Applicable - Core Measures Any of the following diagnoses?: none Exam - Constitutional Vitals: Temp Pulse Resp BP Pulse Ox 98.5 F 68 20 104/66 97 09/05/17 17:29 09/05/17 17:29 09/05/17 17:29 09/05/17 17:29 09/05/17 17:29 Plan Follow up with: RODRI SOLIS MD [Primary Care Provider] - 3-5 Days
== END 2017-09-05 20:11 | disposition left against medical advice (07) | DRG 603 ==
LOC: ED 11:56 → 3A 15:12
PROVIDERS: ADMIT Internal Medicine; ATTEND Internal Medicine
PROC: 3E0234Z Introduction of Serum, Toxoid and Vaccine into Muscle, Percutaneous Approach (ICD-10-PCS; principal; 2017-09-05)
DX: L03.116 Cellulitis of left lower limb (principal); E87.1 Hypo-osmolality and hyponatremia; L97.329 Non-pressure chronic ulcer of left ankle with unspecified severity; D64.9 Anemia, unspecified; E87.6 Hypokalemia; F17.200 Nicotine dependence, unspecified, uncomplicated; F12.90 Cannabis use, unspecified, uncomplicated; Z72.89 Other problems related to lifestyle; Z79.899 Other long term (current) drug therapy; Z88.1 Allergy status to other antibiotic agents; Z88.2 Allergy status to sulfonamides; Z88.8 Allergy status to other drugs, medicaments and biological substances; Z71.6 Tobacco abuse counseling; Z23 Encounter for immunization
CPT/HCPCS: 36415; 80048; 80053; 82140; 82550; 82962; 83036; 85025; 85652; 85730; 86140; 87040; 90686; 96365; 96375; J0295; J1644; J2001; J2270; J2405; J2543; J3370; J7030; J7040; J7050; Q9967